=== PATIENT | female | born 1980 | race Caucasian/White ===

== ENCOUNTER 2020-05-12 20:29 | Emergency (ER) | payer BC ==
[~2020-05-12] VITALS: Ht 165.1 cm; Wt 86.0 kg
[2020-05-12] MEDS ORDERED: diphenhydrAMINE HCL 25 MG CAPSULE PO ONE (21:30)
[2020-05-12] MEDS ORDERED: FAMOTIDINE 20 MG TABLET. PO ONE (21:30)
[2020-05-12] MEDS ORDERED: CETIRIZINE HCL 10 MG TABLET. PO SCH (21:30)
[2020-05-12] MEDS ORDERED: DEXAMETHASONE 4 MG TABLET PO SCH (21:30)
[2020-05-12] MEDS ORDERED: DIPH25TA24 PO (21:45)
[2020-05-12] MEDS ORDERED: EPIPEN 2-P0.3 MG/0.3 IJ (21:45)
[2020-05-12] MEDS ORDERED: PRED20TA PO (21:45)
[2020-05-12] MEDS ORDERED: HYDR453.3 TP (21:45)
--- NOTE | 2020-05-12 21:46 | PHYS DOC ---
Past Medical History Past Medical History: No Pertinent History Past Surgical History: No Surgical History Smoking Status: Current Every Day Smoker Alcohol Use: None General Adult EDM: Chief Complaint: ITCHING HPI: HPI: 39-year-old female who denies any significant past medical history presents to the ED with complaints of pruritic rash w/swelling that started on patient's face and eyes, left upper extremity and upper chest upon awakening around 930 o'clock this morning. Went to bed without any rash. History of a "severe poison kaveh allergy," has never required epinephrine, has no EpiPen, no history of angioedema. Takes no medications, no lisinopril. Known outdoor exposure but reports she has 3 dogs. Denies any new foods, lotions, perfumes, detergents, soaps or medications. Unclear source of allergy. ROS: Denies associated fever, chills, drooling, changes in speech, sore throat, throat swelling, dyspnea, chest pain, nausea, vomiting, abdominal pain, neck stiffness, headache, rash in mucous mucous membranes, cough, leg swelling or decreased urine output. Review of Systems: Review of Systems: Constitutional: Denies fever or chills. [] Eyes: Denies change in visual acuity. [] HENT: Denies nasal congestion or sore throat. [] Respiratory: Denies cough or shortness of breath. [] Cardiovascular: Denies chest pain or edema. [] GI: Denies abdominal pain, nausea, vomiting, bloody stools or diarrhea. [] : Denies dysuria. [] Musculoskeletal: Denies back pain or joint pain. [] Integument: Denies rash. [] Neurologic: Denies headache, focal weakness or sensory changes. [] Endocrine: Denies polyuria or polydipsia. [] Lymphatic: Denies swollen glands. [] Psychiatric: Denies depression or anxiety. [] Current Medications: Current Medications Medications (Trade) Dose Ordered Sig/Eliazar Start Time Stop Time Status Last Admin Dose Admin Cetirizine HCl (ZyrTEC) 10 mg DAILY 05/13/20 09:00 UNV Dexamethasone (Decadron) 10 mg [id number] 05/13/20 08:00 UNV Diphenhydramine HCl (Benadryl) 25 mg 1X ONCE 05/12/20 21:30 05/12/20 21:31 UNV Famotidine (Pepcid) 20 mg 1X ONCE 05/12/20 21:30 05/12/20 21:31 UNV Allergies: Allergies: Allergies Coded Allergies Type Severity Reaction Last Updated Verified No Known Drug Allergies 05/12/20 No Physical Exam: PE: Constitutional: Well developed, well nourished, no acute distress, non-toxic appearance. [] HENT: Normocephalic, atraumatic, bilateral external ears normal, oropharynx moist, no oral exudates, nose normal, patent oropharynx with no edema, no muffled speech or drooling, speaking in full clear sentences, upper and lower eyelid swelling-with full vision intact (not swollen shut) Eyes: PERRLA, EOMI, conjunctiva normal, no discharge. [] Neck: Normal range of motion, no tenderness, supple, no stridor. [] Cardiovascular:Heart rate regular rhythm, no murmur [] Lungs & Thorax: Bilateral breath sounds clear to auscultation [] Abdomen: Bowel sounds normal, soft, no tenderness, no masses, no pulsatile m asses. [] Skin: Warm, dry, no erythema, raised non-vesicular erythematous urticaria over her face and cheeks, left upper extremity, upper chest Back: No tenderness, no CVA tenderness. [] Extremities: No tenderness, no cyanosis, no clubbing, ROM intact, no edema. [] Neurologic: Alert and oriented X 3, normal motor function, normal sensory function, no focal deficits noted. [] Psychologic: Affect normal, judgement normal, mood normal. [] Current Patient Data: Vital Signs: Vital Signs Date Time Temp Pulse Resp B/P (MAP) Pulse Ox O2 Delivery O2 Flow Rate FiO2 05/12/20 20:53 98.1 93 16 131/89 (103) 99 Room Air 98.1 EKG: EKG: [] Radiology/Procedures: Radiology/Procedures: [] Impression: Concern for acute allergic allergic reaction with no physical exam findings for angioedema, hemodynamically stable with no anaphylaxis. Symptoms have been present for more than 12 hours. Patient was treated for acute allergic reaction in the ED and will be sent home with an EpiPen(was given instructions on use). Very strict ED return precautions given for difficulties breathing, changes in speech or neck fullness. Also encourage patient follow-up with an packaging associate to be tested. Encourage PMD follow-up. All patient's questions were answered and she was stable at time of discharge. Course & Med Decision Making: Course & Med Decision Making Pertinent Labs and Imaging studies reviewed. (See chart for details) [] Lizet Disclaimer: Lizet Disclaimer: This electronic medical record was generated, in whole or in part, using a voice recognition dictation system. Departure Departure Impression: Primary Impression: Allergic reaction Additional Impression: Urticaria Disposition: 01 HOME, SELF-CARE Condition: STABLE Referrals: NO PCP (PCP) Patient Instructions: Allergies, Generic, Hives Scripts Diphenhydramine Hcl (DIPHENHYDRAMINE HCL) 25 Mg Tablet 1 TAB PO Q6-8HRS PRN for ITCHING MDD 100mg for 30 Days, #30 TAB 0 Refills Prov: DAVON DEL TORO DO 05/12/20 Hydrocortisone (HYDROCORTISONE) 453.6 Gm Cream..g. 1 YAA TP PRN BID for rash, #30 GM 1% Prov: DAVON DEL TORO DO 05/12/20 Epinephrine (EPIPEN 2-VICTOR HUGO) 0.3 Mg/0.3 Ml Auto.injct 0.3 MG IJ prn shortness of air for 1 Day, #2 SYR Prov: DAVON DEL TORO DO 05/12/20 Prednisone (PREDNISONE) 20 Mg Tablet 2 TAB PO DAILY for 4 Days, #8 TAB Prov: DAVON DEL TORO DO 05/12/20 Justicifation of Admission Dx: Justifications for Admission: Justification of Admission Dx: N/A DAVON DEL TORO DO May 12, 2020 21:46
[2020-05-12 22:06] VITALS: BP 124/94
== END 2020-05-12 22:06 | disposition home or self-care (01) ==
LOC: ER 20:29
DX: L50.0 Allergic urticaria (principal); R21 Rash and other nonspecific skin eruption; R60.0 Localized edema; F17.200 Nicotine dependence, unspecified, uncomplicated
CPT/HCPCS: 99284; J8540; Q0163

== ENCOUNTER 2020-05-15 21:17 | Emergency (ER) | payer BC ==
[~2020-05-15] VITALS: Ht 165.1 cm; Wt 81.8 kg
[~2020-05-15 21:17] MED LIST: DIPH25TA24 PO; EPIPEN 2-P0.3 MG/0.3 IJ; HYDR453.3 TP; PRED20TA PO
[2020-05-15] MEDS ORDERED: IV NORMAL SALINE 1000ML BAG 1,000 ML IV SCH (21:45)
[2020-05-15] MEDS ORDERED: methylPREDNISolone SOD SUCC PF 125 MG/2 ML VIAL. IV ONE (22:00)
[2020-05-15] MEDS ORDERED: diphenhydrAMINE 50 MG/ML VIAL IV ONE (22:00)
[2020-05-15] MEDS ORDERED: FAMOTIDINE 20 MG/2 ML VIAL IVP ONE (22:00)
[2020-05-15 22:25] LABS: BASO # 0.1 x10^3/uL (0.0-0.2); BASO % 1 % (0-3); EOS % 0 % (0-3); HEMATOCRIT 39.7 % (36.0-47.0); HEMOGLOBIN 13.3 g/dL (12.0-15.5); LYMPH # 2.8 x10^3/uL (1.0-4.8); LYMPH % 24 % (24-48); MEAN CORPUSCULAR HEMOGLOBIN 29 pg (25-35); MEAN CORPUSCULAR HGB CONC 33 g/dL (31-37); MEAN CORPUSCULAR VOLUME 85 fL (79-100); MONO # 0.5 x10^3/uL (0.0-1.1); MONO % 5 % (0-9); NEUT # 8.3 x10^3/uL (1.8-7.7); NEUT % 71 % (31-73); PLATELET COUNT 371 x10^3/uL (140-400); RED BLOOD COUNT 4.66 x10^6/uL (3.50-5.40); RED CELL DISTRIBUTION WIDTH 16.4 % (11.5-14.5); WHITE BLOOD COUNT 11.7 x10^3/uL (4.0-11.0)
[2020-05-15 22:30] LABS: CREATININE 1.2 mg/dL (0.6-1.0); GFR 49.8
[2020-05-15 22:36] LABS: ALBUMIN 3.8 g/dL (3.4-5.0); TOTAL BILIRUBIN 0.1 mg/dL (0.2-1.0); TOTAL PROTEIN 7.5 g/dL (6.4-8.2)
[2020-05-15] MEDS ORDERED: ERYT1OIN6 OS (23:19)
[2020-05-15] MEDS ORDERED: METH4TAB2 PO (23:19)
[2020-05-15] MEDS ORDERED: FEXO180T81 PO (23:19)
--- NOTE | 2020-05-15 23:19 | PHYS DOC ---
Past Medical History Past Medical History: No Pertinent History Past Surgical History: Cholecystectomy, Additional Past Surgical Histo: Nose surgery Smoking Status: Current Every Day Smoker Alcohol Use: Occasionally Additional Information: wine General Adult EDM: Chief Complaint: OTHER COMPLAINTS HPI: HPI: Patient is a 39 year old female who presents with complaint of rash to her face, arms and left side of chest that has been intermittent for the last week. Patient states that when she wakes up in the morning, her eyes are swollen shut. She states that she took steroids and Benadryl after being seen here previously for same complaint and symptoms are just not getting better. She denies any new soaps, lotions or detergents. She also indicates that she has draining from her left eye with matting of her eyelids in the morning. She denies any visual changes. [] Review of Systems: Review of Systems: Constitutional: Denies fever or chills. [] Eyes: Denies change in visual acuity. Complains of left eye discharge/drainage [] Respiratory: Denies cough or shortness of breath. [] Cardiovascular: Denies chest pain or edema. [] Integument: Complains of rash. [] Neurologic: Denies headache, focal weakness or sensory changes. [] Heart Score: Risk Factors: Risk Factors: DM, Current or recent (<one month) smoker, HTN, HLP, family history of CAD, obesity. Risk Scores: Score 0 - 3: 2.5% MACE over next 6 weeks - Discharge Home Score 4 - 6: 20.3% MACE over next 6 weeks - Admit for Clinical Observation Score 7 - 10: 72.7% MACE over next 6 weeks - Early Invasive Strategies Current Medications: Current Medications Medications (Trade) Dose Ordered Sig/Eliazar Start Time Stop Time Status Last Admin Dose Admin Diphenhydramine HCl (Benadryl) 50 mg 1X ONCE 05/15/20 22:00 05/15/20 22:01 DC 05/15/20 22:24 50 MG Famotidine (Pepcid Vial) 20 mg 1X ONCE 05/15/20 22:00 05/15/20 22:01 DC 05/15/20 22:24 20 MG Methylprednisolone Sodium Succinate (SOLU-Medrol 125MG VIAL) 125 mg 1X ONCE 05/15/20 22:00 05/15/20 22:01 DC 05/15/20 22:23 125 MG Sodium Chloride 1,000 ml @ 1,000 mls/hr Q1H 05/15/20 21:45 05/15/20 22:45 DC 05/15/20 22:23 1,000 MLS/HR Allergies: Allergies: Allergies Coded Allergies Type Severity Reaction Last Updated Verified No Known Drug Allergies 05/12/20 No Physical Exam: PE: Constitutional: Well developed, well nourished, no acute distress, non-toxic appearance. [] HENT: Normocephalic, atraumatic, bilateral external ears normal, oropharynx moist, no oral exudates, nose normal. [] Eyes: PERRLA, EOMI, conjunctiva slightly injected on the left, no discharge. [] Neck: Normal range of motion, no tenderness, supple. [] Cardiovascular: Regular rate and rhythm [] Lungs & Thorax: Bilateral breath sounds clear to auscultation [] Skin: There is an erythematous rash noted to the face, worse around the eyes as well as upper arms, left greater than right with numerous papules. [] Current Patient Data: Labs: Laboratory Tests Test 05/15/20 22:15 White Blood Count 11.7 x10^3/uL (4.0-11.0) H Red Blood Count 4.66 x10^6/uL (3.50-5.40) Hemoglobin 13.3 g/dL (12.0-15.5) Hematocrit 39.7 % (36.0-47.0) Mean Corpuscular Volume 85 fL (79-100) Mean Corpuscular Hemoglobin 29 pg (25-35) Mean Corpuscular Hemoglobin Concent 33 g/dL (31-37) Red Cell Distribution Width 16.4 % (11.5-14.5) H Platelet Count 371 x10^3/uL (140-400) Neutrophils (%) (Auto) 71 % (31-73) Lymphocytes (%) (Auto) 24 % (24-48) Monocytes (%) (Auto) 5 % (0-9) Eosinophils (%) (Auto) 0 % (0-3) Basophils (%) (Auto) 1 % (0-3) Neutrophils # (Auto) 8.3 x10^3/uL (1.8-7.7) H Lymphocytes # (Auto) 2.8 x10^3/uL (1.0-4.8) Monocytes # (Auto) 0.5 x10^3/uL (0.0-1.1) Eosinophils # (Auto) 0.0 x10^3/uL (0.0-0.7) Basophils # (Auto) 0.1 x10^3/uL (0.0-0.2) Sodium Level 139 mmol/L (136-145) Potassium Level 4.0 mmol/L (3.5-5.1) Chloride Level 104 mmol/L (98-107) Carbon Dioxide Level 23 mmol/L (21-32) Anion Gap 12 (6-14) Blood Urea Nitrogen 9 mg/dL (7-20) Creatinine 1.2 mg/dL (0.6-1.0) H Estimated GFR (Cockcroft-Gault) 49.8 BUN/Creatinine Ratio 8 (6-20) Glucose Level 135 mg/dL (70-99) H Calcium Level 9.0 mg/dL (8.5-10.1) Total Bilirubin 0.1 mg/dL (0.2-1.0) L Aspartate Amino Transferase (AST) 11 U/L (15-37) L Alanine Aminotransferase (ALT) 22 U/L (14-59) Alkaline Phosphatase 65 U/L (46-116) Total Protein 7.5 g/dL (6.4-8.2) Albumin 3.8 g/dL (3.4-5.0) Albumin/Globulin Ratio 1.0 (1.0-1.7) Laboratory Tests 05/15/20 22:15 Laboratory Tests 05/15/20 22:15 Vital Signs: Vital Signs Date Time Temp Pulse Resp B/P (MAP) Pulse Ox O2 Delivery O2 Flow Rate FiO2 05/15/20 22:30 98.3 79 24 144/87 (106) 99 Room Air 98.3 EKG: EKG: [] Radiology/Procedures: Radiology/Procedures: [] Course & Med Decision Making: Course & Med Decision Making Pertinent Labs and Imaging studies reviewed. (See chart for details) [] Dragon Disclaimer: Dragon Disclaimer: This electronic medical record was generated, in whole or in part, using a voice recognition dictation system. Departure Departure Impression: Primary Impression: Dermatitis, unspecified Additional Impression: Conjunctivitis Qualified Codes: H10.9 - Unspecified conjunctivitis Disposition: 01 HOME, SELF-CARE Condition: STABLE Referrals: NO PCP (PCP) Patient Instructions: Conjunctivitis (Viral and Bacterial), Rash Scripts Fexofenadine Hcl (BERTHA ALLERGY) 180 Mg Tablet 1 TAB PO DAILY for allergy symptoms for 30 Days, #30 TAB 0 Refills Prov: FRANKIE DEVINE Jr. DO 05/15/20 Methylprednisolone (MEDROL) 4 Mg Tab.ds.pk 1 PKG PO UD, #1 PKG Prov: FRANKIE DEVINE Jr. DO 05/15/20 Erythromycin Base (Erythromycin) 1 Gm Oint...g. 0.5 INCH OS TID, #3.5 GM Prov: FRANKIE DEVINE Jr. DO 05/15/20 Justicifation of Admission Dx: Justifications for Admission: Justification of Admission Dx: Comment: (Not applicable) FRANKIE DEVINE Jr. DO May 15, 2020 23:19
[2020-05-15 23:28] VITALS: BP 134/86
== END 2020-05-15 23:28 | disposition home or self-care (01) ==
LOC: ER 21:17
DX: L23.3 Allergic contact dermatitis due to drugs in contact with skin (principal); T45.0X5A Adverse effect of antiallergic and antiemetic drugs, initial encounter; R60.0 Localized edema; H10.9 Unspecified conjunctivitis; F17.200 Nicotine dependence, unspecified, uncomplicated; Z90.49 Acquired absence of other specified parts of digestive tract; Z98.890 Other specified postprocedural states; Y92.89 Other specified places as the place of occurrence of the external cause
CPT/HCPCS: 36415; 80053; 85025; 96374; 96375; 99284; J1200; J2930; J3490; J7030